=== PATIENT | female | born 1990 | race Caucasian/White ===

== ENCOUNTER 2016-12-25 13:36 | Emergency (ER) | payer OTHER ==
--- NOTE | ~2016-12-25 | CR72 ---
[facility] A Service of [facility] RADIOLOGY TEXT RESULTS PATIENT: SHAUNNA GARCIA LOCATION: [facility] : 91 UNIT #: [id number] AGE: [address]: Guillermo Calhoun DO SEX: F ORDER DR: [id number] [facility] [address] [place], [place] [address] [id number] MR#: [id number] Acc #: [id number] NAME: SHAUNNA GARCIA : 1990 SEX: F STUDY DATE/TIME: 12/25/2016 17:23 UNIT: [facility] ROOM: STUDY DESCRIPTION: CR Chest Single View Portable Attending Physician: Ronnell Noyola M.D. Ordering Physician: Ronnell Noyola M.D. Primary Care Physician: No Primary Care Physician MEDICAL IMAGING REPORT This report is preliminary unless electronic signature is present EXAM Single view chest INDICATIONS Shortness of air, chest pain, and cough for 1 day. FINDINGS Single portable AP view of the chest compared to 03/19/2016. Heart and mediastinal contours normal. Lungs are clear. No pleural effusion. IMPRESSION No acute cardiopulmonary findings or significant interval change Dictated by... David Ruiz M.D. THIS IS AN ELECTRONICALLY VERIFIED REPORT David Ruiz M.D. at 12/25/2016 9:46 PM NIKHIL/shanelle TD: 12/25/2016 18:42 JOB #: [id number] MEDICAL IMAGING REPORT Page 1 of 1 COPY
--- NOTE | ~2016-12-25 | EKG ---
PATIENT: SHAUNNA GARCIA UNIT #: [id number] Ventricular Rate: 109 BPM Atrial Rate: 109 BPM P-R Interval: 124 ms QRS Duration: 84 ms Q-T Interval: 356 ms QTC Calculation(Bezet): 479 ms P Allen: 80 degrees Calculated R Allen: 84 degrees Calculated T Allen: 28 degrees Diagnosis Line: Sinus tachycardia Diagnosis Line: Nonspecific T wave abnormality Diagnosis Line: Otherwise normal ECG Diagnosis Line: When compared with ECG of 25-DEC-2016 13:41, Diagnosis Line: (unconfirmed) Diagnosis Line: Nonspecific T wave abnormality now evident in Diagnosis Line: Anterolateral leads Diagnosis Line: Confirmed by OXANA MOCTEZUMA MD ([id number]) on 12/26/2016 Diagnosis Line: 10:38:44 AM INTERPRETING MD: JOSE ELIAS SHEFFIELD
--- NOTE | ~2016-12-25 | EKG ---
PATIENT: SHAUNNA GARCIA UNIT #: [id number] Ventricular Rate: 97 BPM Atrial Rate: 97 BPM P-R Interval: 126 ms QRS Duration: 72 ms Q-T Interval: 368 ms QTC Calculation(Bezet): 467 ms P Mayo: 84 degrees Calculated R Mayo: 85 degrees Calculated T Mayo: 17 degrees Diagnosis Line: Normal sinus rhythm Diagnosis Line: Left atrial enlargement Diagnosis Line: Nonspecific ST abnormality Diagnosis Line: Otherwise normal ECG Diagnosis Line: No previous ECGs available Diagnosis Line: Confirmed by OXANA MOCTEZUMA MD ([id number]) on 12/26/2016 Diagnosis Line: 10:37:55 AM INTERPRETING MD: JOSE ELIAS SHEFFIELD
[~2016-12-25 13:36] MED LIST: CIPRO PO; FLAGYL PO; FLEXERIL10 MG PO; LORTAB 5/500 TA1 TA1 PO; NO MEDICATIONS; PHENERGAN25 MG PO; PREDNISONE PO; TYLENOL #3 PO
[2016-12-25 17:35] LABS: BASOPHIL# 0.1 X10e3 (0-0.3); BASOPHIL% 0.3 % (0-2.5); DIFF IND YES; EOSINOPHIL# 0.3 X10e3 (0-0.7); EOSINOPHIL% 1.9 % (0.0-7.0); HEMATOCRIT 43.1 % (35.0-45.0); HEMOGLOBIN 13.6 gm/dL (12.0-16.0); LYMPHOCYTE# 1.6 X10e3 (1.0-3.5); LYMPHOCYTE% 10.4 % (17.0-45.0); MEAN CELL VOLUME 85.1 FL (83-96); MEAN CORPUSCULAR HEMOGLOBIN 26.9 PG (28-34); MEAN CORPUSCULAR HGB CONC 31.7 g/dL (30-36); MEAN PLATELET VOLUME 9.9 FL (6.5-11.5); MONOCYTE# 1.5 X10e3 (0-1.0); MONOCYTE% 9.3 % (3.0-12.0); NEUTROPHIL# 12.2 X10e3 (1.5-7.1); NEUTROPHIL% 78.1 % (40-75); PLATELET COUNT 214 X10e3 (140-420); RED BLOOD COUNT 5.06 X10e (3.90-5.30); RED CELL DISTRIBUTION WIDTH 14.8 % (11.0-15.5); WHITE BLOOD COUNT 15.6 X10e3 (4.0-10.5)
[2016-12-25 17:57] LABS: ALBUMIN SERUM 4.2 g/dL (3.5-5.0); BILIRUBIN, DIRECT 0.1 mg/dL (0.0-0.2); BILIRUBIN,INDIRECT 0.6 mg/dL (0.0-0.9); BILIRUBIN,TOTAL 0.7 mg/dL (0.2-2.0); CALCIUM SERUM 8.8 mg/dL (8.4-10.2); GLOM FILT RATE Estimated 78.3 mL/min (>60); POTASSIUM 3.3 mmol/L (3.5-5.1); PROTEIN TOTAL SERUM 7.5 g/dL (6.0-8.3)
[2016-12-25 18:07] LABS: PLATELET ESTIMATE NORMAL (NORMAL)
[2016-12-25 18:08] LABS: RBC NORMAL YES
== END 2016-12-25 21:25 ==
LOC: CED 13:36
PROVIDERS: Emergency Medicine
DX: S61.502A Unspecified open wound of left wrist, initial encounter (principal); J45.901 Unspecified asthma with (acute) exacerbation; X78.9XXA Intentional self-harm by unspecified sharp object, initial encounter; Y92.9 Unspecified place or not applicable; J45.909 Unspecified asthma, uncomplicated; F41.9 Anxiety disorder, unspecified; F32.9 Major depressive disorder, single episode, unspecified; Z88.0 Allergy status to penicillin; Z88.2 Allergy status to sulfonamides; F17.200 Nicotine dependence, unspecified, uncomplicated
CPT/HCPCS: 36415; 71010; 80048; 80076; 84703; 85025; 93005; 94640; 96374; 99285; J2930

== ENCOUNTER 2016-12-25 18:00 | Inpatient (IN) | payer OTHER ==
--- NOTE | ~2016-12-25 | HP ---
Unit #: [id number] #: [id number] Patient: SHAUNNA GARCIA [id number] [facility] [address] [place] [address] [id number] MR#: [id number] NAME: SHAUNNA GARCIA ROOM: P182 Age: 26 Sex: F Admission Date: 12/25/2016 : 1990 Attending Physician: Roger Zamorano M.D. Admitting Physician: Roger Zamorano M.D. Primary Care Physician: Primary Care Physician No HISTORY AND PHYSICAL HISTORY OF PRESENT ILLNESS Shaunna is a 26 year old admitted to [facility] with depression and verbalizing wanting to hurt herself. PAST MEDICAL HISTORY 1. Obesity 2. Asthma PAST SURGICAL HISTORY 1. Oral 2. section x1 ALLERGIES Penicillin, sulfa. SOCIAL HISTORY Smokes one-half pack per day. Drinks alcohol on a daily basis and has a history of marijuana and cocaine use. FAMILY HISTORY Medically noncontributory. REVIEW OF SYSTEMS CONSTITUTIONAL: No fever or chills. HEENT: Denies any sore throat, ear pain or runny nose. CARDIOVASCULAR: Denies chest pain, irregular heart rhythm or palpitations. CHEST: Denies shortness of breath or cough. No hemoptysis. GASTROINTESTINAL: Denies nausea, vomiting, diarrhea or chronic constipation. ENDOCRINE: Denies history of increased thirst or urination. No recent significant weight loss or gain. GENITOURINARY: Denies dysuria, frequency, or hematuria. SKIN: Denies any rashes. HEMATOLOGIC: Denies history of increased bleeding or bruising. MUSCULOSKELETAL: Denies any hot, swollen joints. No generalized muscle pain. NEUROLOGIC: Denies problems with vision or speech. No frequent, severe headaches. No numbness, tingling or weakness in any extremities. Denies loss of bladder or bowel control. CURRENT MEDICATIONS Detox protocol Unit #: [id number] #: [id number] Patient: SHAUNNA GARCIA PHYSICAL EXAMINATION GENERAL: Alert, obese, in no apparent distress. VITAL SIGNS: Blood pressure 130/82, heart rate 72, respirations 16, temperature 98.6. WEIGHT: 185 pounds. HEIGHT: 5'8". SKIN: Warm and dry without rash or lesion. HEENT: Normocephalic. TMs not viewed. Oral and nasal passages clear. Conjunctivae clear. Pupils equal, round and reactive to light and accommodation. Extraocular movements intact. NECK: Supple without lymphadenopathy or thyromegaly. CHEST: Decreased breath sounds with bilateral rhonchi. HEART: Regular rate and rhythm without murmur. LUNGS: Clear. ABDOMEN: Soft, nontender. : Not done. EXTREMITIES: No evidence of cyanosis, clubbing or edema. Moves all extremities without focal deficit. NEUROLOGICAL: Grossly within normal limits. Cranial Nerves: II: Visual waddell are intact. III, IV AND : Extraocular movements are intact. Pupils are equal, round and reactive to light. V: Facial sensation is grossly normal. VII: Facial movements and expression are normal. VIII: Auditory acuity grossly intact. IX, X: Uvula is midline. Phonation is normal. XI: Patient shrugs shoulders and turns head normally. XII: Tongue protrudes in the midline. Sensory and Motor Function: Sensory and motor sensation is grossly normal. Motor: moves all extremities well. Coordination: Gait is normal. Deep Tendon Reflexes: Intact. IMPRESSION 1. Psychiatric admission 2. URI RECOMMENDATIONS PSYCHIATRIC: Per psychiatrist. MEDICAL: 1. I see no contraindications to participating in facility's activities. 2. Add Albuterol inhaler, levaquin and Albuterol mininebs. MEDICAL PROGNOSIS Good. MEDICAL CONDITION Stable. Dictated by... Marissa Vicente P.A.-C. for Delonte Blanca/bebeto Unit #: [id number] #: [id number] Patient: SHAUNNA GARCIA TD: 12/27/2016 00:58 JOB #: [id number] HISTORY AND PHYSICAL Page 1 of 1 X Marissa Vicente HISTORY AND PHYSICAL
--- NOTE | ~2016-12-25 | DS ---
Unit #: [id number] #: [id number] Patient: SHAUNNA GARCIA [id number] [place] [address] [id number] I MR#: [id number] NAME: SHAUNNA GARCIA ROOM: 82 Age: 26 Sex: F Admission Date: 12/25/2016 : 1990 Discharge Date: 12/27/2016 Attending Physician: Roger Zamorano M.D. Primary Care Physician: Primary Care Physician No DISCHARGE SUMMARY REASON FOR ADMISSION The patient is a 26-year-old female, admitted with a history of depression and alcohol dependence. HOSPITAL COURSE The patient was admitted to the [facility] unit and placed on routine detoxification protocol for alcohol. Because of an upper respiratory infection, she was began on albuterol, Levaquin, Dimetapp. The patient was began on Seroquel 50 mg at 7:00 p.m. and tolerated the medication well. She requested discharge to take place on 12/27/2016. At that time, she exhibited no signs or symptoms of withdrawal and denied suicidal ideation. Discharge was as per her request ordered. FINAL DIAGNOSES Alcohol use disorder; mood disorder, unspecified; urinary tract infection; upper respiratory infection. DISPOSITION ON DISCHARGE The patient is discharged on the following medications; Levaquin 500 mg daily for upper respiratory infection and urinary tract infection, Seroquel 50 mg at bedtime for mood stabilization, Proventil HFA 2 puffs q.4 hours p.r.n. shortness of air, Claritin 10 mg daily for environmental allergies. DISCHARGE INSTRUCTIONS No dietary or physical restrictions were placed on the patient at the time of discharge. FOLLOWUP Followup will take place through the auspices of community mental health resources. PROGNOSIS The patient's prognosis is considered fair. Dictated by... Roger Zamorano M.D. CB/robyn TD: 12/27/2016 23:20 JOB #: [id number] Unit #: [id number] #: [id number] Patient: SHAUNNA GARCIA DISCHARGE SUMMARY Page 1 of 1 X Roger Zamorano MD X DISCHARGE SUMMARY
--- NOTE | ~2016-12-25 | CO ---
Unit #: [id number] #: [id number] Patient: SHAUNNA GARCIA [id number] [place] [address] [id number] I MR#: [id number] NAME: SHAUNNA GARCIA ROOM: [facility] Age: 26 Sex: F Admission Date: 12/25/2016 : 1990 Attending Physician: Roger Zamorano M.D. Primary Care Physician: Primary Care Physician No Consultation Date: 12/27/2016 CONSULTATION REPORT REASON FOR CONSULT Decongestants. 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 She states that she does have seasonal allergies. OBJECTIVE The patient is a 26-year-old female who is awake, in no acute distress. VITAL SIGNS: Temperature 98.6, heart rate 72, respirations 16, blood pressure 130/82. HEENT: Head is atraumatic, normocephalic. Pupils equal, round and reactive. Extraocular movements are intact. No drainage from ears or nose. NECK: Supple, trachea is midline. No lymphadenopathy is appreciated. CHEST: Lungs are clear. HEART: Regular rate and rhythm. NEUROLOGIC: Cranial nerves II through XII intact. No focal deficits. ASSESSMENT Seasonal allergies and congestion. Consult was placed for possible decongestants. At this time, will add Zyrtec 10 mg p.o. daily. Dictated by... Perla Browne A.P.R.N. for Eyal Gomez M.D. AM/solomon TD: 12/27/2016 16:55 JOB #: [id number] Unit #: [id number] #: [id number] Patient: SHAUNNA GARCIA CONSULTATION REPORT Page 1 of 1 X Perla Browne APRN X CONSULTATION REPORT
--- NOTE | ~2016-12-25 | PA ---
Unit #: [id number] #: [id number] Patient: SHAUNNA GARCIA [id number] [facility] [address] [place] [address] [id number] I MR#: [id number] NAME: SHAUNNA GARCIA ROOM: P182 Age: 26 Sex: F Admission Date: 12/25/2016 : 1990 Date of Assessment: 12/26/2016 Attending Physician: Roger Zamorano M.D. Admitting Physician: Roger Zamorano M.D. Primary Care Physician: Primary Care Physician No PSYCHIATRIC ASSESSMENT IDENTIFYING INFORMATION The patient is a 26-year-old female admitted to the [facility] unit with a history of increasing alcohol use, mood instability and suicidal ideation. INFORMANT(S) Patient and chart. RELIABILITY Good. CHIEF COMPLAINT None given. HISTORY OF PRESENT ILLNESS The patient is a 26-year-old female who is admitted to the hospital in transfer from [facility]. She had presented to that facility complaining of shortness of air but while there had complained of increasing depression as well as alcohol use. 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 She does report a history of treatment with antidepressant medications and reports poor response to that medication. This happened during a depression. The patient is currently on no prescribed psychotropic medications but was scheduled to be seen at [facility] today regarding assessment for such medication. The patient complains of frequently racing thoughts and poor sleep. She is continuing to endorse positive suicidal ideation during today's interview. PAST PSYCHIATRIC HISTORY As above. FAMILY HISTORY Noncontributory. SOCIAL HISTORY The patient lives with her boyfriend. She is employed as a "dancer." She reports alcohol use as noted previous. MEDICAL HISTORY Noncontributory. MEDICATION HISTORY Unit #: [id number] #: [id number] Patient: SHAUNNA GARCIA None. ALLERGIES Penicillin, sulfa. MENTAL STATUS EXAM At this time reveals the patient to be a slightly obese female appearing her stated age. She is in no apparent physical distress at time of examination. She is awake, alert and oriented in all spheres. Her mood is dysphoric and tearful. Her affect somewhat labile. Speech is generally relevant and coherent. There are no gross deficits in memory or cognition noted. Intelligence is judged to be in the average range based on fund of knowledge. The patient is cooperative throughout the interview. She is currently endorsing positive suicidal ideation. She denies homicidal ideation. She denies any psychotic symptoms. Her judgement and insight appear to be intact. ASSETS AND LIABILITIES Patient's assets, motivation for change. Liabilities, lack of resources. ADMITTING DIAGNOSES 1. Bipolar disorder, mixed phase. 2. Asthma. 3. Obesity. 4. Alcohol use disorder. PSYCHIATRIC PLAN/TREATMENT GOALS The patient remains hospitalized for safety and stabilization. She does seem to present a history of possibly consistent with a bipolar spectrum disorder, particularly given the history of racing thoughts and a previous depression. Accordingly, a trial of Seroquel 50 mg at h.s. will be initiated and routine detoxification protocol for alcohol has been placed. ESTIMATED LENGTH OF STAY Five to seven days. Dictated by... Roger Zamorano M.D. ALVIN/solomon TD: 12/26/2016 15:14 JOB #: [id number] Unit #: [id number] #: [id number] Patient: SHAUNNA GARCIA PSYCHIATRIC ASSESSMENT Page 1 of 1 X Roger Zamorano MD X PSYCHIATRIC ASSESSMENT
[2016-12-26 12:41] LABS: BASOPHIL% 0.2 % (0-2.5); DIFF IND NO; LYMPHOCYTE# 1.4 X10e3 (1.0-3.5); LYMPHOCYTE% 8.2 % (17.0-45.0); MEAN CELL VOLUME 85.4 FL (83-96); MEAN CORPUSCULAR HGB CONC 31.6 g/dL (30-36); MEAN PLATELET VOLUME 10.4 FL (6.5-11.5); MONOCYTE# 0.8 X10e3 (0-1.0); MONOCYTE% 4.9 % (3.0-12.0); NEUTROPHIL# 14.6 X10e3 (1.5-7.1); NEUTROPHIL% 86.7 % (40-75); PLATELET COUNT 221 X10e3 (140-420); RED CELL DISTRIBUTION WIDTH 14.3 % (11.0-15.5); WHITE BLOOD COUNT 16.8 X10e3 (4.0-10.5)
[2016-12-26 12:43] LABS: ALBUMIN SERUM 3.6 g/dL (3.5-5.0); BILIRUBIN,TOTAL 0.7 mg/dL (0.2-2.0); CALCIUM SERUM 9.2 mg/dL (8.4-10.2); CREATININE SERUM 0.8 mg/dL (0.6-1.4); GLOM FILT RATE Estimated 102.6 mL/min (>60); POTASSIUM 4.1 mmol/L (3.5-5.1); PROTEIN TOTAL SERUM 6.7 g/dL (6.0-8.3)
[2016-12-27 09:45] LABS: URINE APPEARANCE CLOUDY; URINE BILIRUBIN NEG (NEG); URINE BLOOD 1+ (NEG); URINE COLOR DK YELLOW; URINE GLUCOSE NEG (NEG); URINE KETONE TRACE (NEG); URINE LEUKOCYTE ESTERASE TRACE (NEG); URINE NITRATE POS (NEG); URINE PH 6.5 (5-8); URINE PROTEIN NEG (NEG); URINE SPECIFIC GRAVITY 1.022 (1.003-1.035)
[2016-12-27 09:49] LABS: URBCS1 AUWI 0-2 /[HPF] (0-2); URINE BACTERIA AUWI 4+ (NEGATIVE); URINE SQUAMOUS EPITHELIAL CELL OCC /[HPF]
[2016-12-27 11:28] LABS: AMPHETAMINE NEG (NEG); BARBITURATES NEG (NEG); BENZODIAZEPINES POS (NEG); COCAINE POS (NEG); MARIJUANA NEG (NEG); OPIATES NEG (NEG); TRICYCLIC ANTIDEPRESSANTS NEG (NEG); U METHADONE NEG (NEG)
== END 2016-12-27 17:30 | disposition home or self-care (01) | DRG 885 ==
LOC: P1E 21:53
PROVIDERS: Specialist
PROC: HZ2ZZZZ Detoxification Services for Substance Abuse Treatment (ICD-10-PCS; principal; 2016-12-25)
DX: F31.60 Bipolar disorder, current episode mixed, unspecified (principal); N39.0 Urinary tract infection, site not specified; J45.909 Unspecified asthma, uncomplicated; E66.9 Obesity, unspecified; F10.20 Alcohol dependence, uncomplicated; F17.210 Nicotine dependence, cigarettes, uncomplicated; Z88.0 Allergy status to penicillin; Z88.2 Allergy status to sulfonamides; J06.9 Acute upper respiratory infection, unspecified
CPT/HCPCS: 80053; 80307; 81003; 85025; 86592

== ENCOUNTER 2017-03-25 03:58 | Emergency (ER) | payer OTHER ==
[~2017-03-25] VITALS: Ht 172.7 cm; Wt 83.9 kg
[2017-03-25] MEDS ORDERED: LAMOTRIGINE25 M2 PO (04:23)
[2017-03-25] MEDS ORDERED: MINIPRESS PO (04:24)
[2017-03-25 05:33] LABS: CALCIUM SERUM 9.3 mg/dL (8.4-10.2); GLOM FILT RATE Estimated 78.3 mL/min (>60); POTASSIUM 3.7 mmol/L (3.5-5.1)
== END 2017-03-25 06:30 | disposition home or self-care (01) ==
LOC: SED 03:58
PROVIDERS: Emergency Medicine
DX: R51 Headache (principal); J45.909 Unspecified asthma, uncomplicated; F41.9 Anxiety disorder, unspecified; F32.9 Major depressive disorder, single episode, unspecified; F17.210 Nicotine dependence, cigarettes, uncomplicated; Z79.899 Other long term (current) drug therapy; Z88.0 Allergy status to penicillin; Z88.2 Allergy status to sulfonamides
CPT/HCPCS: 36415; 80048; 96361; 96374; 96375; 99284; J0780; J1200; J1885